=== PATIENT | female | born 2000 | race African-American/Black ===

== ENCOUNTER 2018-07-12 19:00 | Emergency (ER) | payer MEDICAID ==
[~2018-07-12] VITALS: Ht 170.2 cm; Wt 56.4 kg
[2018-07-12] MEDS ORDERED: MACR100C43 PO (22:21)
[2018-07-12] MEDS ORDERED: NITROFURANTOIN (MACROBID) 100 MG CAP PO ONE (22:45)
[2018-07-12 22:53] VITALS: BP 111/63
[2018-07-13 00:05] LABS: CHLAMYDIA DNA AMPLIFICATION NEGATIVE (NEGATIVE); GC DNA AMPLIFICATION NEGATIVE (NEGATIVE)
== END 2018-07-12 23:16 | disposition home or self-care (01) ==
LOC: M ED 19:00
DX: N30.91 Cystitis, unspecified with hematuria (principal); F17.210 Nicotine dependence, cigarettes, uncomplicated

== ENCOUNTER 2019-06-03 02:53 | Emergency (ER) | payer MEDICAID ==
[~2019-06-03] VITALS: Ht 170.2 cm; Wt 58.6 kg
[~2019-06-03 02:53] MED LIST: MACR100C43 PO
[2019-06-03 07:05] LABS: BASO % 0.8 % (0.0-1.0); EOS % 0.6 % (0.0-3.0); HEMATOCRIT 38.7 % (36.0-47.0); HEMOGLOBIN 12.5 g/dl (12.0-15.5); LYMPH % 19.1 % (24.0-44.0); MEAN CORPUSCULAR HEMOGLOBIN 25.9 pg (27.0-33.0); MEAN CORPUSCULAR HGB CONC 32.3 g/dl (32.0-36.5); MEAN CORPUSCULAR VOLUME 80.3 fl (80.0-96.0); MONO # 0.4 10^3/uL (0.0-0.8); MONO % 6.9 % (0.0-5.0); NEUTROPHILS # 3.8 10^3/uL (1.5-8.5); NEUTROPHILS % 72.4 % (36.0-66.0); PLATELET COUNT, AUTOMATED 303 10^3/uL (150-450); RED BLOOD COUNT 4.82 10^6/uL (4.00-5.40); WHITE BLOOD COUNT 5.2 10^3/uL (4.0-10.0)
[2019-06-03 07:23] LABS: BLOOD UREA NITROGEN 10 MG/DL (7-18); CARBON DIOXIDE LEVEL 27 MEQ/L (21-32); CHLORIDE LEVEL 109 MEQ/L (98-107); CREATININE FOR GFR 0.77 MG/DL (0.55-1.30); GLUCOSE, FASTING 102 MG/DL (70-100); POTASSIUM SERUM 4.4 MEQ/L (3.5-5.1); SODIUM LEVEL 141 MEQ/L (136-145)
[2019-06-03] MEDS ORDERED: METR1GEL7 PV (07:55)
[2019-06-03] MEDS ORDERED: cefTRIAXone SOD 250 MG VIAL (J0696) IM ONE (08:00)
[2019-06-03] MEDS ORDERED: AZITHROMYCIN 250 MG TAB PO ONE (08:00)
[2019-06-03] MEDS ORDERED: LIDOCAINE 1% SDV 5 ML VIAL DILUENT ONE (08:00)
[2019-06-03 08:24] VITALS: BP 120/63
[2019-06-03 08:38] LABS: CHLAMYDIA DNA AMPLIFICATION NEGATIVE (NEGATIVE); GC DNA AMPLIFICATION NEGATIVE (NEGATIVE)
--- NOTE | 2019-06-03 08:47 | REP ---
Pelvic ultrasound transabdominal and Doppler assessment: The studies performed for left lower quadrant abdominal pain. The bladder is adequately distended. The uterus measures 9.0 x 4.0543 cm and is normal size. The endometrium measures 14.4 mm and is upper normal. Right ovary: The right ovary measures 4.1 x 1 point and a 3.6 cm and is normal size. There is no dominant mass or cyst. There is vascular flow with the Doppler resistive index in the parenchymal arteries measuring 0.40. Left ovary: The left ovary is 3.6 x 1 point of by 3.1 cm and is normal size. There is a dominant follicle measuring 1.7 x 1.2 x 1.3 cm. There is vascular flow with the Doppler resistive index of the parenchymal arteries measuring 0.63. There is a trace of free fluid in the posterior cul-de-sac. Impression: There is a left ovarian dominant follicle as described. There is vascular flow in both ovaries. There is a trace of free fluid in the posterior cul-de-sac. Electronically Signed by Veto Hidalgo MD 06/03/2019 08:39 A
== END 2019-06-03 08:57 | disposition home or self-care (01) ==
LOC: M ED 02:53
DX: Z20.2 Contact with and (suspected) exposure to infections with a predominantly sexual mode of transmission (principal); N76.0 Acute vaginitis
CPT/HCPCS: 76856; 80048; 81001; 84702; 85025; 87088; 87210; 87491; 87591; 93976; 96372; 99284; J0696